=== PATIENT | male | born 1985 | race Caucasian/White ===

== ENCOUNTER 2023-01-20 02:27 | Observation (INO) | payer OTHER, SELFPAY ==
[2023-01-20] VITALS (14 sets, daily range): BP systolic 161–213; BP diastolic 98–119; PULSE 77–105; RESP 16–22; TEMP 35.9–36.8; O2SAT 94–100; BMI 47.2; BMI 48.6
--- NOTE | ~2023-01-20 | US_ITS ---
EXAMINATION: US renal BI DATE: 01/20/2023 14:43 INDICATION: Acute kidney injury TECHNIQUE: Multiple grayscale and Doppler ultrasound images of the kidneys were obtained. COMPARISON: None. FINDINGS: There is limited evaluation of the kidneys due to body habitus. The right kidney measures 1 0.8 x 5.3 x 6.1 cm. The left kidney measures 11.6 x 4.9 x 6.2 cm. The kidneys demonstrate normal pare nchymal echogenicity. There is no hydronephrosis. The bladder is normal in appearance. IMPRESSION: 1. Normal kidneys without hydronephrosis. Reviewed, dictated and finalized at location L.
--- NOTE | ~2023-01-20 | US_ITS ---
EXAMINATION: US retroperitoneal duplex ltd DATE: 01/21/2023 15:55 INDICATION: Hypertension, obesity and smoking. TECHNIQUE: Multiple grayscale, color Doppler, and pulsed Doppler images of the kidneys and renal josé harshil were obtained. COMPARISON: None. FINDINGS: The right kidney and right renal artery is unable to be identified. The left renal artery peak systol ic velocity is 50 cm/s in the proximal segment, 63 cm/s in the mid segment, and 39 cm/s in the distal segment. IMPRESSION: 1. No Doppler evidence of left-sided renal artery stenosis. The right kidney and right renal artery are unable to be identified. Consider CT or MRI for further evaluation, preferably with intravenous c ontrast. Reviewed, dictated and finalized at location A. IMPRESSION: 1. No Doppler evidence of left-sided renal artery stenosis. The right kidney a nd right renal artery are unable to be identified. Consider CT or MRI for furth er evaluation, preferably with intravenous contrast.
--- NOTE | 2023-01-20 01:21 | ADMGEN ---
This patient, Onesimo Benoit, was admitted to IMU Room 210-01. Patient/family oriented to hospital policies and general routines including ID bracelet, bed and alarms, visiting hours, pain management, procedures, bathroom and other care routines, personal items, smoking policy, room service/diet, and visiting hours. Information on how to activate the Rapid Response Team has been discussed. Patient/Family are encouraged to report perceived risks to care and to ask questions if they do not understand what they are told or what they should do.
[2023-01-20 10:39] LABS: Basophils Absolute Auto 0.1 K/mm3 (0.0-0.1); Basophils Percent Auto 0.9 % (0.2-1.2); Eosinophils Absolute Auto 0.2 K/mm3 (0-0.3); Hematocrit 46.8 % (42.0-52.0); Hemoglobin 14.7 g/dL (14.0-18.0); Immature Granulocyte Absolute 0.02 K/mm3 (0.00-0.031); Immature Granulocyte Percent A 0.4 % (0-0.5); Lymphocytes Absolute Auto 1.23 K/mm3 (0.9-3.2); Mean Corpuscular HGB Conc 31.4 g/dl (32-36); Mean Corpuscular Hemoglobin 28.6 pg (26-34); Mean Corpuscular Volume 91.1 fl (80-100); Mean Platelet Volume 10.4 fl (7.4-10.4); Monocytes Percent Auto 18.9 % (2.6-8.5); Neutrophils Absolute Auto 2.9 K/mm3 (1.3-6.7); Neutrophils Percent Auto 53.8 % (45.5-73.1); Platelet Count Result 247 k/mm3 (150-375); Red Blood Count 5.14 M/mm3 (4.6-6.20); Red Cell Distribution Width 13.2 % (11.5-14.5); White Blood Count 5.3 K/mm3 (4.5-10.0)
[2023-01-20 10:52] LABS: Alanine Aminotransferase 26 U/L (6-50); Albumin Level 4.1 g/dL (3.5-5.1); Alkaline Phosphatase 90 U/L (38-126); Anion Gap 6 mmol/L (8-16); Aspartate Amino Transferase 25 U/L (17-59); Bilirubin,Total 0.4 mg/dL (0.2-1.3); Blood Urea Nitrogen 33 mg/dL (9-20); Calcium 8.9 mg/dL (8.4-10.2); Carbon Dioxide 25 mmol/L (22-30); Chloride 105 mmol/L (98-107); Cholesterol 243 mg/dL (0-200); Estimated CRCL calculation 51 ml/min; Estimated Glomerular Filt Rate 26; Glucose 93 mg/dL (65-110); HDL Direct 30 mg/dL; Magnesium 2.1 mg/dL (1.6-2.3); Potassium 4.4 mmol/L (3.4-5.0); Sodium 136 mmol/L (137-145); Triglycerides 420 mg/dL (<150)
[2023-01-20 11:03] LABS: LDL Cholesterol Direct 100 mg/dL
[2023-01-20 12:31] LABS: Influenza A QL RT-PCR Negative (Negative); Influenza B QL RT-PCR Negative (Negative); RSV RNA, RT-PCR Negative (Negative); SARS-CoV-2 RNA PCR Positive (Negative)
[2023-01-20] MEDS: lisinopriL 20 MG TABLET PO (12:43)
[2023-01-20] MEDS: amLODIPine BESYLATE 5 MG TABLET 10 MG PO (12:43)
[2023-01-20] MEDS: hydrALAZINE HCL 25 MG TABLET PO ×2 (15:16→19:54)
--- NOTE | 2023-01-20 15:25 | PM.CNNEP ---
Assessment and Plan Assessment and plan (1) MARIVEL (acute kidney injury): Code(s): N17.9 - Acute kidney failure, unspecified Status: Acute Assessment and Plan: previous creatinine not known last labs I could find was from 2018 -- creatinine at that time was 1.4mg/dl given his age, GFR at that time was >60 however, this could also represent some evidence of renal insufficiency check renal ultrasound and renal duplex (given severe HTN) check urine studies and assess for proteinuria check serologies follow trend of repeat labs and UOP (2) Hypertension: Code(s): I10 - Essential (primary) hypertension Status: Acute Assessment and Plan: quite elevated on presentation to OSH ER no symptoms other than headache possible etiology of #1 (?) check renal duplex to r/o IZZY check Echo aim to keep systolic BP ~ 160 - 170s in the next 24 hours follow trend of hemodynamics (3) COVID: Code(s): U07.1 - COVID-19 Status: Acute Assessment and Plan: incidentally found no real attributable symptoms I will continue to follow the patient with you while he remains hospitalized and make further recommendations as needed. Thank you for allowing me to participate in care this patient. History of Present Illness Reason for Consult Consult date: 01/20/23 Reason for consult: acute renal failure (?) Chief Complaint Chief complaint: HTN Urgency/MARIVEL/Uncontrolled Hypertension History of Present Illness Narrative: The patient is a 37-year-old male with a past medical history as outlined below who was transferred to [facility] for further evaluation of hypertensive urgency in association with acute kidney injury/acute renal failure. The patient initially went to see his primary care physician for ongoing issues/problems with regard to an upper respiratory tract infection. On evaluation on that office visit, it was noted his blood pressure was in the 240 systolic range and he was subsequently sent to [facility] ER for further evaluation. His routine blood test demonstrated a significantly elevated BUN and creatinine in association with his hypertension. He was given oral medications for his blood pressure and subsequently transferred to [facility] for further evaluation and therapy. On admission here to [facility], repeat bloodwork confirmed his elevated BUN and creatinine and his blood pressure was still quite elevated. the outside hospital ER gave him Amlodipine and Lisinopril for treatment of his blood pressure although I am unclear if they gave him any other IV medications as well. Given his renal dysfunction, it was felt that he would better be served by admission here to [facility] for further testing. Incidentally, it was discovered he was also COVID-19 positive. Renal consultation was requested due to his presumed acute kidney injury/acute renal failure. From my discussion with the patient, he has never been told or informed that he has any issues or problems with regard to his kidney function. He does report a longstanding history of hypertension and I am unclear how controlled and has been up until this point in time. Furthermore, the patient reports that he has not had blood test in several years so was unclear how acute or chronic this change in his renal function is. Looking through his electronic records, the last creatinine that I can find is from 2018 which demonstrated a value of 1.4 mg/dL. Given his age, his GFR would still be greater than 60 but this does argue the possibility that there may have been some underlying renal issues even as far back as 2018 if not longer. Currently, at the time my evaluation, he does not appear to be in acute distress. Review of Systems Review of Systems: As per HPI. [facility] Past Medical History Medical History (Updated 01/20/23 @ 19:07 by Joe Martin MD) Hypertension
[2023-01-20 15:46] LABS: Add Urine Microscopic? YES; Appearance Urine Clear (Clear); Bacteria Urine None Seen /hpf; Bilirubin Urine Negative (Negative); Blood Urine 1+ (Negative); Color Urine Yellow (Yellow); Glucose Urine UA Negative (Negative); Ketones Urine Negative (Negative); Leukocyte Esterase Ur Negative LEU/UL (Negative); Nitrate Urine Negative (Negative); Non Pathogenic Casts 0-2; Protein Urine 3+ mg/dL (Negative); RBC Urine 0-2 /hpf (0-2); Specific Grav Ur 1.009 (1.001-1.035); Squamous Epithelial Cell Urine None seen /hpf (Few); Urobilinogen Urine 0.2 mg/dL (<2.0); WBC Urine 0-5 /hpf; pH Urine 6.5 (5.0-9.0)
[2023-01-20 16:05] LABS: Eosinophil Urine None Seen % (None Seen); Urine Eos QC 2nd Tech Confirmed
[2023-01-20 16:11] LABS: Urea Random Urine 303 MG/DL
[2023-01-20 16:13] LABS: Creatinine Urine 39.5 mg/dL
[2023-01-20 16:15] LABS: Sodium Urine Random 91 meq/L
--- NOTE | 2023-01-20 16:19 | PM.IMHP ---
H&P: HPI History of Present Illness Date/Time: 01/20/23 16:19 Chief Complaint: Emergently elevated blood pressure Narrative: Patient is a 37-year-old morbidly obese initially was seen by his primary care provider symptoms of upper respiratory infection at that time his blood pressure was systolic 240 and patient was sent to emergency department at [facility] ER, will patient was given amlodipine 10 mg and lisinopril 20 mg and transfer the patient to the hospital further evaluation, patient does complain of headache but denies any chest pain, palpitation, shortness of breath or blurry vision, patient states he was told that his blood pressure is elevated and borderline but Arabella was not on any blood pressure medication, will continue amlodipine and lisinopril, to monitor his blood pressure, will keep the systolic blood pressure 160 get the patient hydralazine 25 mg q.6h as needed, also patient has elevated creatinine most likely secondary to dehydration as well as concerning uncontrolled hypertension resulting in kidney injury, to further evaluate will do the kidney ultrasound and consult imaging science professor, will do cardiac echo, patient is also positive for COVID-19 he does not have any symptoms of shortness of breath fever or chills 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 Patient is admitted as inpatient with emergently elevated new onset hypertension, acute coronary injury and [facility] Social History Social History Years smoked: 10 Smoking status: Current some day smoker Tobacco type: cigarettes Alcohol intake: never Substance use: never Lack of Transportation: No Lack of Food: Never True Current Housing: I Have Housing Concerned About Future Housing: No Difficulty Paying Gas/Electric Bills: No Difficulty Paying for Meds: No Currently Unemployed: No Education: High School Diploma/GED Difficulty w/ Childcare or Family Care: No Spiritual care concerns: No Meds Home Medications and Allergies Home Medications Medication Instructions Recorded Confirmed Type amlodipine 10 mg tablet 10 mg PO DAILY 01/20/23 01/20/23 History ibuprofen 200 mg tablet 200 mg PO Q6H PRN Pain 01/20/23 01/20/23 History lisinopril 20 mg tablet 20 mg PO DAILY 01/20/23 01/20/23 History Allergies Allergy/AdvReac Type Severity Reaction Status Date / Time erythromycin base Allergy Hives Verified 01/20/23 01:52 Vital Signs Vital Signs - 24 hr 01/20/23 01:15 01/20/23 02:00 01/20/23 04:00 Temperature 97.3 F L 97.6 F Pulse Rate 85 91 79 Respiratory Rate 22 H 22 H Blood Pressure 173/106 H 161/98 H Pulse Oximetry 100 98 Oxygen Delivery 01/20/23 04:00 01/20/23 04:00 01/20/23 06:00 Temperature Pulse Rate 84 77 Respiratory Rate Blood Pressure Pulse Oximetry Oxygen Delivery Room Air 01/20/23 08:00 01/20/23 08:00 01/20/23 08:00 Temperature 96.7 F L Pulse Rate 81 80 80 Respiratory Rate 20 20 Blood Pressure 166/118 H Pulse Oximetry 99 99 Oxygen Delivery Room Air 01/20/23 10:00 01/20/23 12:00 01/20/23 12:00 Temperature 97.6 F Pulse Rate 84 78 Respiratory Rate 16 Blood Pressure 213/119 H Pulse Oximetry 99 Oxygen Delivery Room Air 01/20/23 12:00 01/20/23 14:00 01/20/23 16:00 Temperature Pulse Rate 86 82 Respiratory Rate Blood Pressure Pulse Oximetry Oxygen Delivery Room Air 01/20/23 16:00 01/20/23 16:00 Temperature 97.5 F L Pulse Rate 87 84 Respiratory Rate 16 Blood Pressure 183/117 H Pulse Oximetry 99 Oxygen Delivery Exam Narrative: Morbidly obese Patient is comfortable, NAD HEENT: eyes are clear and none icteric LUNGS: Normal respiratory effort ABD:distended Lower extremities: no edema SKIN: nonjaundiced Neuro: grossly intact. H&P: Results Labs Labs: Short CBC 01/20/23 Range/Units 10:26 WBC 5.3 (4.5-10.0) K/mm3
[2023-01-20 16:30] LABS: Total Protein Urine Random 306 mg/dL; Ur Ttl Prot Creatinine Ratio 7.75 mg/mg (0-0.20)
[2023-01-20] MEDS: METOPROLOL TARTRATE INJ 5 MG/5 ML VIAL IV PUSH (21:56)
[2023-01-21] VITALS (14 sets, daily range): BP systolic 135–177; BP diastolic 89–103; PULSE 69–90; RESP 12–22; TEMP 36.4–36.9; O2SAT 98–100
--- NOTE | 2023-01-21 | ECHO_ITS ---
Patient Info Name: Onesimo Benoit Age: 37 years : 1985 Gender: Male Ht: 71 in Wt: 350 lbs BSA: 2.90 m2 HR: 72 bpm BP: 177 / 101 mmHg Heart Rhythm: Sinus Rhythm Technical Quality: Good Exam Date: 01/21/2023 11:23 AM Exam Location: [facility] Patient Status: Outpatient Admit Date: 01/20/2023 Staff Ordering Physician: Ning Chin MD Procurement Clerk: Ann Marie Self RDCS Attending Provider: Garrett Chew MD Exam Type: CA echo dop color flow w con Study Info Indications - hypertensive crisis Complete two-dimensional, color flow and Doppler transthoracic echocardiogram is performed with contrast to opacify the left ventricle and to improve the deliniation of the left ventricle endocardial borders. Summary 1. Technically somewhat difficult exam because of patient obesity/definity contrast use. 2. Concentric left ventricular hypertrophy with mildly reduced systolic function and grade 1 diastolic noncompliance. 3. Enlarged left atrium. 4. No valvular dysfunction. Left Ventricle Left ventricular chamber dimension is normal. Left ventricular systolic function is mildly reduced, estimated at 45-50%. There is moderate concentric increased left ventricular wall thickness. The left ventricular diastolic function is grade I diastolic dysfunction. Right Ventricle Right ventricular chamber dimension is normal. Left Atria Left atrial chamber dimension is mildly enlarged. Right Atria Right atrial chamber dimension is normal. Aortic Valve The aortic valve is normal. Pulmonic Valve The pulmonic valve is not well visualized. Mitral Valve The mitral valve has normal leaflets. Tricuspid Valve The tricuspid valve leaflets are normal. Pericardium/Pleural The pericardium appears normal. Aorta The aortic root size at the sinus of Valsalva is normal. Left Ventricular Outflow Tract Name Value Normal LVOT 2D LVOT Diameter 2.17 cm LVOT Doppler LVOT Peak Gradient 3 mmHg LVOT Mean Gradient 2 mmHg LVOT VTI 17.26 cm LVOT VTI/AV VTI Ratio 0.98 LVOT Stroke Volume 63.69 ml LVOT CO 5.11 l/min LVOT CI 1.76 L/min/m2 Pulmonic Valve Name Value Normal RVOT Doppler RVOT Peak Gradient 2 mmHg PV Doppler PV Peak Gradient 2 mmHg Mitral Valve Name Value Normal MV Doppler MV Decel [place] 490.14 cm/s2 MV PHT 0 s MV Area (P
[2023-01-21 05:09] LABS: Hematocrit 48.6 % (42.0-52.0); Hemoglobin 15.7 g/dL (14.0-18.0); Mean Corpuscular HGB Conc 32.3 g/dl (32-36); Mean Corpuscular Hemoglobin 28.4 pg (26-34); Mean Platelet Volume 10.6 fl (7.4-10.4); Platelet Count Result 273 k/mm3 (150-375); Red Blood Count 5.52 M/mm3 (4.6-6.20); Red Cell Distribution Width 13.2 % (11.5-14.5); White Blood Count 5.2 K/mm3 (4.5-10.0)
[2023-01-21 05:24] LABS: Anion Gap 8 mmol/L (8-16); Blood Urea Nitrogen 34 mg/dL (9-20); Calcium 9.1 mg/dL (8.4-10.2); Carbon Dioxide 25 mmol/L (22-30); Chloride 103 mmol/L (98-107); Estimated CRCL calculation 51 ml/min; Estimated Glomerular Filt Rate 26; Glucose 104 mg/dL (65-110); Potassium 4.3 mmol/L (3.4-5.0); Sodium 136 mmol/L (137-145)
[2023-01-21 05:26] LABS: Creatine Kinase 157 U/L (55-170)
[2023-01-21 05:29] LABS: Complement C3 168 mg/dL (88-165)
[2023-01-21] MEDS: hydrALAZINE HCL 25 MG TABLET PO (06:10)
[2023-01-21] MEDS: amLODIPine BESYLATE 5 MG TABLET 10 MG PO (08:45)
--- NOTE | 2023-01-21 11:17 | P.PNNP_ITS ---
Progress Note: A&P Assessment and Plan (1) MARIVEL (acute kidney injury): Code(s): N17.9 - Acute kidney failure, unspecified Status: Acute Assessment and Plan: * Elevated creatinine and nephrotic range proteinuria. * last labs I could find was from 2018 -- creatinine at that time was 1.4mg/dl * given his age, GFR at that time was >60 * however, this could also represent some evidence of renal insufficiency * Ultrasound shows normal kidneys. * Urine electrolytes show non pre renal physiology. * Complements okay * UA shows 3+ protein 1+ blood. * checking serologies * The patient could simply have hypertensive nephrosclerosis. Infiltrative or autoimmune diseases are possible as well. * follow trend of repeat labs and UOP * With a nephrotic range proteinuria plus a little bit of blood I think a biopsy would be warranted. Will follow blood pressure over the weekend and biopsy on Tuesday if he is still here. If not we will do this as an outpatient. (2) Hypertension: Code(s): I10 - Essential (primary) hypertension Status: Acute Assessment and Plan: * Blood pressure very high on admission. * no symptoms other than headache * Blood pressure is improved on amlodipine hydralazine lisinopril and metoprolol. * renal duplex to r/o IZZY and Echo are pending * aim to keep systolic BP ~ 160 - 170s in the next 24 hours * follow trend of hemodynamics (3) COVID: Code(s): U07.1 - COVID-19 Status: Acute Assessment and Plan: * incidentally found * He did have low-grade fevers and some fogginess he says. Subjective Date/time seen: 01/21/23 11:17 Interval history: Onesimo is feeling a little better. Resting comfortably in bed. He is on no oxygen. Review of Systems Cardiovascular: Cardiovascular: Reports no additional cardiovascular complaints Respiratory: Respiratory: Reports no additional respiratory complaints Gastrointestinal: Gastrointestinal: Reports no additional gastrointestinal complaints Genitourinary: Genitourinary: Reports no additional male genitourinary complaints Exam Narrative: WDWN in NAD skin no rash head ncat lungs clear cor reg no rub abd BS+ nontender and soft ext no edema. Objective Data Vital Signs Vital Signs: Vital Signs - 24 hr 01/20/23 12:00 01/20/23 12:00 01/20/23 12:00 Temperature 97.6 F Pulse Rate 78 86 Respiratory Rate 16 Blood Pressure 213/119 H Pulse Oximetry 99 Oxygen Delivery Room Air 01/20/23 14:00 01/20/23 16:00 01/20/23 16:00 Temperature Pulse Rate 82 87 Respiratory Rate Blood Pressure Pulse Oximetry Oxygen Delivery Room Air 01/20/23 16:00 01/20/23 18:00 01/20/23 20:00 Temperature 97.5 F L 98.2 F Pulse Rate 84 91 88 Respiratory Rate 16 22 H Blood Pressure 183/117 H 172/103 H Pulse Oximetry 99 94 Oxygen Delivery 01/20/23 20:00 01/20/23 21:19 01/20/23 20:00 Temperature 97.6 F Pulse Rate 84 91 Respiratory Rate 22 H Blood Pressure 175/101 H Pulse Oximetry 100 Oxygen Delivery Room Air 01/20/23 21:56 01/21/23
--- NOTE | 2023-01-21 11:17 | PM.PNNEP ---
Progress Note: A&P Assessment and Plan (1) MARIVEL (acute kidney injury): Code(s): N17.9 - Acute kidney failure, unspecified Status: Acute Assessment and Plan: Elevated creatinine and nephrotic range proteinuria. last labs I could find was from 2018 -- creatinine at that time was 1.4mg/dl given his age, GFR at that time was >60 however, this could also represent some evidence of renal insufficiency Ultrasound shows normal kidneys. Urine electrolytes show non pre renal physiology. Complements okay UA shows 3+ protein 1+ blood. checking serologies The patient could simply have hypertensive nephrosclerosis. Infiltrative or autoimmune diseases are possible as well. follow trend of repeat labs and UOP With a nephrotic range proteinuria plus a little bit of blood I think a biopsy would be warranted. Will follow blood pressure over the weekend and biopsy on Tuesday if he is still here. If not we will do this as an outpatient. (2) Hypertension: Code(s): I10 - Essential (primary) hypertension Status: Acute Assessment and Plan: Blood pressure very high on admission. no symptoms other than headache Blood pressure is improved on amlodipine hydralazine lisinopril and metoprolol. renal duplex to r/o IZZY and Echo are pending aim to keep systolic BP ~ 160 - 170s in the next 24 hours follow trend of hemodynamics (3) COVID: Code(s): U07.1 - COVID-19 Status: Acute Assessment and Plan: incidentally found He did have low-grade fevers and some fogginess he says. Subjective Date/time seen: 01/21/23 11:17 Interval history: Onesimo is feeling a little better. Resting comfortably in bed. He is on no oxygen. Review of Systems Cardiovascular: Cardiovascular: Reports no additional cardiovascular complaints Respiratory: Respiratory: Reports no additional respiratory complaints Gastrointestinal: Gastrointestinal: Reports no additional gastrointestinal complaints Genitourinary: Genitourinary: Reports no additional male genitourinary complaints Exam Narrative: WDWN in NAD skin no rash head ncat lungs clear cor reg no rub abd BS+ nontender and soft ext no edema. Objective Data Vital Signs Vital Signs: Vital Signs - 24 hr 01/20/23 12:00 01/20/23 12:00 01/20/23 12:00 Temperature 97.6 F Pulse Rate 78 86 Respiratory Rate 16 Blood Pressure 213/119 H Pulse Oximetry 99 Oxygen Delivery Room Air 01/20/23 14:00 01/20/23 16:00 01/20/23 16:00 Temperature Pulse Rate 82 87 Respiratory Rate Blood Pressure Pulse Oximetry Oxygen Delivery Room Air 01/20/23 16:00 01/20/23 18:00 01/20/23 20:00 Temperature 97.5 F L 98.2 F Pulse Rate 84 91 88 Respiratory Rate 16 22 H Blood Pressure 183/117 H 172/103 H Pulse Oximetry 99 94 Oxygen Delivery 01/20/23 20:00 01/20/23 21:19 01/20/23 20:00 Temperature 97.6 F Pulse Rate 84 91 Respiratory Rate 22 H Blood Pressure 175/101 H Pulse Oximetry 100 Oxygen Delivery Room Air 01/20/23 21:56 01/21/23 00:00 01/20/23 22:00 Temperature 97.6 F Pulse Rate 105 H 74 79 Respiratory Rate 22 H Blood Pressure 159/96 H Pulse Oximetry 98 Oxygen Delivery 01/21/23 00:00 01/21/23 00:00 01/21/23 02:00 Temperature Pulse Rate 74 78 Respiratory Rate Blood Pressure Pulse Oximetry Oxygen Delivery Room Air 01/21/23 04:00 01/21/23 04:00 01/21/23 04:00 Temperature 97.8 F Pulse Rate 75 79 Respiratory Rate 22 H Blood Pressure 177/101 H Pulse Oximetry 99 Oxygen Delivery Room Air 01/21/23 06:00 01/21/23 08:00 01/21/23 08:00 Temperature 98.5 F Pulse Rate 72 90 90 Respiratory Rate 16 16 Blood Pressure 145/91 H Pulse Oximetry 100 100 Oxygen Delivery Room Air 01/21/23 08:00 01/21/23 10:00 Temperature Pulse Rate 80 80 Respiratory Rate Blood Pressure Pulse Oximetry Oxygen Delivery Intake/Outpu
[2023-01-21] MEDS: PERFLUTREN LIPID MICROSPHERES 1.5 ML VIAL DILUTED TO 10 ML TOTAL VOLUME IV PUSH (11:20)
--- NOTE | 2023-01-21 15:33 | WPDPN ---
Progress Note: A&P Assessment and Plan (1) Hypertension: Code(s): I10 - Essential (primary) hypertension Status: Acute Assessment and Plan: Patient is a 37-year-old morbidly obese initially was seen by his primary care provider symptoms of upper respiratory infection at that time his blood pressure was systolic 240 and patient was sent to emergency department at [facility] ER, will patient was given amlodipine 10 mg and lisinopril 20 mg and transfer the patient to the hospital further evaluation, patient does complain of headache but denies any chest pain, palpitation, shortness of breath or blurry vision, patient states he was told that his blood pressure is elevated and borderline but Arabella was not on any blood pressure medication, will continue amlodipine and lisinopril, to monitor his blood pressure, will keep the systolic blood pressure 160 get the patient hydralazine 25 mg q.6h as needed, also patient has elevated creatinine most likely secondary to dehydration as well as concerning uncontrolled hypertension resulting in kidney injury, to further evaluate will do the kidney ultrasound and consult glass lined tank repairer, will do cardiac echo, patient is also positive for COVID-19 he does not have any symptoms of shortness of breath fever or chills 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 Whittington suspect 2/2 hypertensive nephrosclerosis and further work up is in progress and patient will need kidney biopsy which is scheduled for Tuesday. cardiac echo is pending, (2) MARIVEL (acute kidney injury): Code(s): N17.9 - Acute kidney failure, unspecified Status: Acute Assessment and Plan: Will hold lisinopril, will do kidney ultrasound, will consult glass lined tank repairer for further evaluation (3) COVID: Code(s): U07.1 - COVID-19 Status: Acute Assessment and Plan: Patient remains clinically stable he does not complain of shortness of breath, fever or chills Subjective Date/time seen: 01/21/23 15:33 Interval history: Patient is a 37-year-old morbidly obese initially was seen by his primary care provider symptoms of upper respiratory infection at that time his blood pressure was systolic 240 and patient was sent to emergency department at [facility] ER, will patient was given amlodipine 10 mg and lisinopril 20 mg and transfer the patient to the hospital further evaluation, patient does complain of headache but denies any chest pain, palpitation, shortness of breath or blurry vision, patient states he was told that his blood pressure is elevated and borderline but Arabella was not on any blood pressure medication, will continue amlodipine and lisinopril, to monitor his blood pressure, will keep the systolic blood pressure 160 get the patient hydralazine 25 mg q.6h as needed, also patient has elevated creatinine most likely secondary to dehydration as well as concerning uncontrolled hypertension resulting in kidney injury, to further evaluate will do the kidney ultrasound and consult glass lined tank repairer, will do cardiac echo, patient is also positive for COVID-19 he does not have any symptoms of shortness of breath fever or chills 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 Whittington suspect 2/2 hypertensive nephrosclerosis and further work up is in progress and patient will
[2023-01-22] VITALS (7 sets, daily range): BP systolic 128–151; BP diastolic 81–100; PULSE 76–101; RESP 14–18; TEMP 36.6; O2SAT 99–100
[2023-01-22 04:54] LABS: Albumin Level 3.9 g/dL (3.5-5.1); Anion Gap 9 mmol/L (8-16); Blood Urea Nitrogen 37 mg/dL (9-20); Carbon Dioxide 23 mmol/L (22-30); Chloride 103 mmol/L (98-107); Estimated CRCL calculation 50 ml/min; Estimated Glomerular Filt Rate 26; Glucose 99 mg/dL (65-110); Phosphorus 5.1 mg/dL (2.5-4.5); Potassium 4.2 mmol/L (3.4-5.0); Sodium 135 mmol/L (137-145)
[2023-01-22 05:27] LABS: Hematocrit 48.8 % (42.0-52.0); Hemoglobin 16.3 g/dL (14.0-18.0); Mean Corpuscular HGB Conc 33.4 g/dl (32-36); Mean Corpuscular Volume 86.8 fl (80-100); Mean Platelet Volume 10.4 fl (7.4-10.4); Platelet Count Result 277 k/mm3 (150-375); Red Blood Count 5.62 M/mm3 (4.6-6.20); Red Cell Distribution Width 13.2 % (11.5-14.5)
[2023-01-22] MEDS: amLODIPine BESYLATE 5 MG TABLET 10 MG PO (09:15)
--- NOTE | 2023-01-22 10:20 | PM.IMPN ---
Progress Note: A&P Assessment and Plan (1) Hypertension: Code(s): I10 - Essential (primary) hypertension Status: Acute Assessment and Plan: Patient is a 37-year-old morbidly obese initially was seen by his primary care provider symptoms of upper respiratory infection at that time his blood pressure was systolic 240 and patient was sent to emergency department at [facility] ER, will patient was given amlodipine 10 mg and lisinopril 20 mg and transfer the patient to the hospital further evaluation, patient does complain of headache but denies any chest pain, palpitation, shortness of breath or blurry vision, patient states he was told that his blood pressure is elevated and borderline but Arabella was not on any blood pressure medication, will continue amlodipine and lisinopril, to monitor his blood pressure, will keep the systolic blood pressure 160 get the patient hydralazine 25 mg q.6h as needed, also patient has elevated creatinine most likely secondary to dehydration as well as concerning uncontrolled hypertension resulting in kidney injury, to further evaluate will do the kidney ultrasound and consult lining machine tender, will do cardiac echo, patient is also positive for COVID-19 he does not have any symptoms of shortness of breath fever or chills 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 Whittington suspect 2/2 hypertensive nephrosclerosis and further work up is in progress and patient will need kidney biopsy which is scheduled for Tuesday. cardiac echo is pending, 01/22/2023: 37-year-old presents to the ER for hypertensive urgency with blood pressures systolic 240. Given amlodipine lisinopril. Had headache on hydralazine p.r.n. MARIVEL versus chronic renal insufficiency with creatinine on admission 2.8. Urinalysis bland urine creatinine ratio of 7.75. Complement level at high also positive for COVID-19 no shortness of breath fever chills. Nephrology consulted blood pressures improved ultrasound kidney with normal kidneys without hydronephrosis. No Doppler evidence of left sided renal artery stenosis. Right kidney and right renal artery are unable to be identified. Echo with concentric left ventricle hypertrophy with mildly reduced systolic function EF 45-50%. Grade 1 diastolic noncompliance. No valvular abnormality. Per nephrology note creatinine 2018 was 1.4 autoimmune workup in process due to nephrotic range proteinuria. Biopsy planned in Tuesday. On amlodipine and hydralazine p.r.n.. Will schedule hydralazine 25 mg b.i.d. for optimization of blood pressure. Patient leaning towards getting the biopsy done as an outpatient basis. If okay with Nephrology DC later today with outpatient follow-up on amlodipine and hydralazine. (2) MARIVEL (acute kidney injury): Code(s): N17.9 - Acute kidney failure, unspecified Status: Acute Assessment and Plan: Will hold lisinopril, will do kidney ultrasound, will consult lining machine tender for further evaluation (3) COVID: Code(s): U07.1 - COVID-19 Status: Acute Assessment and Plan: Patient remains clinically stable he does not complain of shortness of breath, fever or chills Subjective Date/time seen: 01/22/23 10:20 Interval history: Patient is a 37-year-old morbidly obese initially was seen by his primary care provider symptoms of upper respiratory infection at that time his blood pressure was systolic 240 and patient was sent to emergency department at [facility] ER, will patient was given amlodipine 10 mg and lisinopril 20 mg and transfer the patient to the hospital further evaluation, patient does complain of headache but denies a
--- NOTE | 2023-01-22 12:06 | PM.DS ---
DS: Admitting Diagnosis Discharge Date 01/22/2023 Admitting Diagnosis Hypertension urgency DS: Discharge Diagnosis Discharge Diagnosis (1) Hypertension: Code(s): I10 - Essential (primary) hypertension Status: Acute (2) MARIVEL (acute kidney injury): Code(s): N17.9 - Acute kidney failure, unspecified Status: Acute (3) COVID: Code(s): U07.1 - COVID-19 Status: Acute DS: Summary Hospital Course Hospital Course: 37-year-old presents to the ER for hypertensive urgency with blood pressures systolic 240.? Given amlodipine lisinopril.? Had headache. Started on hydralazine p.r.n. he elevated creatinine admission. MARIVEL versus chronic renal insufficiency with creatinine on admission 2.8.? Urinalysis bland urine creatinine ratio of 7.75.? Complement level at high also positive for COVID-19 no shortness of breath fever chills.? Nephrology consulted blood pressures improved ultrasound kidney with normal kidneys without hydronephrosis.? No Doppler evidence of left sided renal artery stenosis.? Right kidney and right renal artery are unable to be identified.? Echo with concentric left ventricle hypertrophy with mildly reduced systolic function EF 45-50%.? Grade 1 diastolic noncompliance.? No valvular abnormality.? Per nephrology note creatinine 2018 was 1.4 autoimmune workup in process due to nephrotic range proteinuria.? Biopsy planned in Tuesday.? On amlodipine and hydralazine p.r.n..? Will schedule hydralazine 25 mg b.i.d. for optimization of blood pressure.? Patient opting for getting biopsy done as outpatient basis. Okay per to discharge plan an outpatient basis. Time Spent with Patient Time attestation: Total time spent providing and/or coordinating discharge services: Exam Narrative: Morbidly obese Patient is comfortable, NAD HEENT: eyes are clear and none icteric LUNGS: Normal respiratory effort ABD:distended Lower extremities: no edema SKIN: nonjaundiced Neuro: grossly intact. DS: Data Data Completed and Pending Completed studies during hospitalization: Exam Type: ? ? CA echo dop color flow w con Study Info Indications ?? ? - hypertensive crisis Complete two-dimensional, color flow and Doppler transthoracic echocardiogram is performed with contrast to opacify the left ventricle and to improve the deliniation of the left ventricle endocardial borders. Account #: ? ? [id number] Summary ? 1. Technically somewhat difficult exam because of patient obesity/definity contrast use. ? 2. Concentric left ventricular hypertrophy with mildly reduced systolic function and grade 1 diastolic noncompliance. ? 3. Enlarged left atrium. ? 4. No valvular dysfunction. Left Ventricle ? Left ventricular chamber dimension is normal. ? Left ventricular systolic function is mildly reduced, estimated at 45-50%. ? There is moderate concentric increased left ventricular wall thickness. ? The left ventricular diastolic function is grade I diastolic dysfunction. Right Ventricle ? Right ventricular chamber dimension is normal. Left Atria ? Left atrial chamber dimension is mildly enlarged. Right Atria ? Right atrial chamber dimension is normal. Aortic Valve ? The aortic valve is normal. Pulmonic Valve ? The pulmonic valve is not well visualized. Mitral Valve ? The mitral valve has normal leaflets. Tricuspid Valve ? The tricuspid valve leaflets are normal. Pericardium/Pleural ? The pericardium appears normal. Aorta ? The aortic root size at the sinus of Valsalva is normal. Labs on day of discharge: Labs from last 24 hours 01/22/23 04:15 WBC 5.0 RBC 5.62 Hgb 16.3 Hct 48.8 MCV 86.8 MCH 29.0 MCHC 33.4 RDW 13.2 Plt Count 277 MPV 10.4 Sodium 135 L Potassium 4.2 Chloride 103 Carbon Dioxide 23 Anion Gap 9 BUN 37 H Creatinine 2.80 H Estim Creat Clear Calc 50 Estimated GFR 26 L Glucose 99 Calcium 9.0 Phosphorus 5.1 H Albumin 3.9 Im
--- NOTE | 2023-01-22 12:49 | PM.PNNEP ---
Progress Note: A&P Assessment and Plan (1) MARIVEL (acute kidney injury): Code(s): N17.9 - Acute kidney failure, unspecified Status: Acute Assessment and Plan: Elevated creatinine and nephrotic range proteinuria. last labs I could find was from 2018 -- creatinine at that time was 1.4mg/dl given his age, GFR at that time was >60 however, this could also represent some evidence of renal insufficiency Ultrasound shows normal kidneys. Urine electrolytes show non pre renal physiology. Complements okay UA shows 3+ protein 1+ blood. checking serologies. Most are pending. The patient could simply have hypertensive nephrosclerosis. Infiltrative or autoimmune diseases are possible as well. The patient's creatinine is stable. I think he can get his biopsy as an outpatient. I instructed him to give me a call at the office so we can get his biopsy arranged and see him. We discussed renal biopsy at length. It is under ultrasound guidance. The kidneys are very vascular were given and so bleeding as possible. Some bleeding will likely occur because we can not hold pressure on the hole in the kidney. Most bleeding spontaneously stops rapidly. However there is a 100 chance that he might need a blood transfusion and 1 in the 500 to a 1000 chance that so may have to go when is stop the bleeding if he has continued bleeding. He is not on blood thinners. He knows that he will have to have a ride back and forth to the biopsy. He agrees to the biopsy and will call on Tuesday to get this set up. (2) Hypertension: Code(s): I10 - Essential (primary) hypertension Status: Acute Assessment and Plan: Blood pressure very high on admission. no symptoms other than headache Blood pressure is improved on amlodipine hydralazine lisinopril and metoprolol. renal duplex to r/o IZZY and Echo are pending Systolic ranging 120-150. (3) COVID: Code(s): U07.1 - COVID-19 Status: Acute Assessment and Plan: incidentally found He did have low-grade fevers and some fogginess he says. He feels better Subjective Date/time seen: 01/22/23 12:49 Interval history: Onesimo is feeling a little better. Eager for discharge. Eating well. No shortness of breath. He is on no oxygen. Exam Narrative: WDWN in NAD skin no rash or subQ nodules head ncat lungs clear bilaterally cor reg no rub abd BS+ nontender and soft ext no edema or cyanosis. Objective Data Vital Signs Vital Signs: Vital Signs - 24 hr 01/21/23 14:00 01/21/23 16:00 01/21/23 16:00 Temperature 97.8 F Pulse Rate 83 87 Respiratory Rate 18 Blood Pressure 156/103 H Pulse Oximetry 99 Oxygen Delivery Room Air 01/21/23 16:00 01/21/23 18:00 01/21/23 19:59 Temperature 97.7 F Pulse Rate 69 89 87 Respiratory Rate 22 H Blood Pressure 155/89 H Pulse Oximetry 99 Oxygen Delivery 01/21/23 20:00 01/21/23 23:39 01/21/23 20:00 Temperature 97.9 F Pulse Rate 83 85 Respiratory Rate 12 Blood Pressure 135/89 Pulse Oximetry 98 Oxygen Delivery Room Air 01/21/23 22:00 01/22/23 00:00 01/22/23 00:00 Temperature Pulse Rate 74 76 Respiratory Rate Blood Pressure Pulse Oximetry Oxygen Delivery Room Air 01/22/23 02:00 01/22/23 04:00 01/22/23 04:00 Temperature 97.8 F Pulse Rate 89 96 Respiratory Rate 14 Blood Pressure 128/81 Pulse Oximetry 100 Oxygen Delivery Room Air 01/22/23 04:00 01/22/23 06:00 01/22/23 08:00 Temperature Pulse Rate 101 H 82 82 Respiratory Rate 14 Blood Pressure Pulse Oximetry 100 Oxygen Delivery Room Air 01/22/23 08:00 01/22/23 08:00 01/22/23 10:00 Temperature 97.9 F Pulse Rate 84 96 86 Respiratory Rate 18 Blood Pressure 151/100 H Pulse Oximetry 99 Oxygen Delivery 01/22/23 12:00 01/22/23 12:00 Temperature Pulse Rate 85 Respiratory Rate Blood Pressure Pulse Oximetry Oxygen Del
[2023-01-25 07:43] LABS: Anti Glomerular Basement Memb <1.0 AI (<1.0)
[2023-01-25 13:57] LABS: Albumin 3.6 g/dL (3.8-4.8); Alpha 1 Globulin 0.3 g/dL (0.2-0.3); Alpha 2 Globulin 0.8 g/dL (0.5-0.9); Beta 1 Globulin 0.5 g/dL (0.4-0.6); Gamma Globulin 0.9 g/dL (0.8-1.7); Protein, Total 6.4 g/dL (6.1-8.1)
[2023-01-25 18:24] LABS: Complement Total CH50 66 U/mL (31-60)
[2023-01-25 21:57] LABS: ANCA Screen Negative (Negative)
[2023-01-26 09:37] LABS: Kappa\\Lambda Light Chains 1.31 (0.26-1.65); Lambda Light Chain 44.5 mg/L (5.7-26.3)
[2023-01-26 13:55] LABS: Chloride Rand Ur 94 mmol/L (32-290); Chloride/Creatinine Rand Ur 229 (23-275); Creatinine Random Urine 41 mg/dL (20-320)
[2023-01-26 19:47] LABS: Creatinine, Random Urine 42 mg/dL (20-320); Total Protein/Creatinine Ratio 4690 mg/g creat (25-148)
== END 2023-01-22 15:59 | disposition home or self-care (01) ==
PROVIDERS: Internal Medicine Nephrology; Admitting Provider Family Medicine; PCP Family Medicine Sports Medicine; Visit Provider Internal Medicine
DX: I16.1 Hypertensive emergency (principal); N17.9 Acute kidney failure, unspecified; U07.1 COVID-19; R51.9 Headache, unspecified; R79.89 Other specified abnormal findings of blood chemistry; E66.01 Morbid (severe) obesity due to excess calories; Z68.42 Body mass index [BMI] 45.0-49.9, adult; F17.210 Nicotine dependence, cigarettes, uncomplicated; Z79.1 Long term (current) use of non-steroidal anti-inflammatories (NSAID); Z79.899 Other long term (current) drug therapy
CPT/HCPCS: 36415; 76775; 80048; 80053; 80061; 80069; 81001; 81050; 82436; 82550; 82570; 83520; 83735; 83883; 84155; 84156; 84165; 84166; 84300; 84443; 84540; 85025; 85027; 85999; 86036; 86038; 86160; 86162; 86225; 87637; 93976; 96374; A9270; C8929; G0378; G0379; Q9957

== ENCOUNTER 2024-01-20 05:16 | Outpatient (CLI) | payer OTHER, SELFPAY ==
[2024-01-11 08:24] VITALS: BMI 47.5
--- NOTE | 2024-01-11 08:24 | PC.NURSE ---
Pre Radiology instructions Report to the outpatient [facility] on date _[id number]_ at time _0900_ for procedure Time: _1100_ YOU MAY BE MONITORED AT HOSPITAL FOR UP TO 4 HOURS AFTER YOUR PROCEDURE. A visitor will be allowed to accompany the patient into the hospital. You and your visitor will be asked to self-screen and do not enter if you have any COVID symptoms. A mask is OPTIONAL within the hospital. Patients are to have no food or drink 6 hours prior to procedure time Driving will be restricted after the procedure, you must have a person to drive you home. Labs will be drawn in preop area and once reviewed, you will be taken to radiology area for procedure. When the procedure is completed, you will be taken to outpatient where you will be monitored for several hours. You may have one visitor in this area. Other than holding anti-coagulants, patient may take other medication(s) as scheduled. Prior to your appointment date patients are instructed to hold anti-coagulants after discussing with ordering provider to stop. If unable to discontinue anti-coagulants please notify radiologist. ? No aspirin or warfarin (Coumadin) for 7 days prior to the procedure. ? No clopidogrel (Plavix), ticagrelor (Brilinta), prasugrel (Effient) or dabigatran (Pradaxa) for 5 days prior to the procedure. ? No rivaroxaban (Xarelto), apixaban (Eliquis), dipyridamole (Aggrenox or Persantine) or cilostazol (Pletal) for 2 days prior to the procedure. Medications to discontinue per physician: Date to take last dose: Please leave all valuables, including medications, at home the day of procedure. The hospital will not accept responsibility for valuables. Wear comfortable, loose fitting clothing.? Follow any additional instructions given to you from ordering provider. Telephone instructions given to __Andy___and asked if any additional questions and then verbalized understanding. Patient advised to call scheduling provider office or registration scheduling [phone] if any additional questions.
[2024-01-20] VITALS (10 sets, daily range): BP systolic 121–153; BP diastolic 61–96; PULSE 57–71; RESP 16–20; TEMP 36.3; O2SAT 99
--- NOTE | ~2024-01-20 | US_ITS ---
EXAMINATION: US biopsy renal DATE: 01/20/2024 10:16 INDICATION: Hypertensive chronic kidney disease TECHNIQUE: The procedure including the risks, benefits, and alternatives was discussed with the patie nt. Risks discussed included bleeding and infection. The patient understood the risks and agreed to p roceed. A timeout was performed to verify the patient's name, date of , and procedure to be p erformed. The skin overlying the left kidney was prepped and draped in usual sterile fashion. Anest hetic was administered with 1% lidocaine subcutaneously. An 18 gauge core biopsy needle was then use d to obtain 5 core biopsy specimens under continuous sonographic guidance. The entry site was cleaned and dressed. There were no immediate complications. FINDINGS: Ultrasound images demonstrate the needle in the kidney. IMPRESSION: 1. Ultrasound-guided random left kidney core needle biopsy. Reviewed, dictated and finalized at location A.
[2024-01-20] MEDS: SODIUM CHLORIDE 0.9% IV 1,000 ML 30 ML IV CONT (07:58)
[2024-01-20 08:02] LABS: Basophils Absolute Auto 0.1 K/mm3 (0.0-0.1); Basophils Percent Auto 0.9 % (0.2-1.2); Eosinophils Absolute Auto 0.4 K/mm3 (0-0.3); Hematocrit 40.1 % (42.0-52.0); Hemoglobin 13.2 g/dL (14.0-18.0); Immature Granulocyte Absolute 0.01 K/mm3 (0.00-0.031); Immature Granulocyte Percent A 0.1 % (0-0.5); Lymphocytes Absolute Auto 1.08 K/mm3 (0.9-3.2); Lymphocytes Percent Auto 16.1 % (18.3-44.2); Mean Corpuscular HGB Conc 32.9 g/dl (32-36); Mean Corpuscular Hemoglobin 29.5 pg (26-34); Mean Corpuscular Volume 89.5 fl (80-100); Mean Platelet Volume 10.2 fl (7.4-10.4); Monocytes Absolute Auto 0.5 K/mm3 (0.1-0.6); Monocytes Percent Auto 7.3 % (2.6-8.5); Neutrophils Absolute Auto 4.7 K/mm3 (1.3-6.7); Neutrophils Percent Auto 69.6 % (45.5-73.1); Platelet Count Result 253 k/mm3 (150-375); Red Blood Count 4.48 M/mm3 (4.6-6.20); Red Cell Distribution Width 12.9 % (11.5-14.5); White Blood Count 6.7 K/mm3 (4.5-10.0)
[2024-01-20 08:12] LABS: Prothrombin Time 13.6 Seconds (11.1-14.7)
== END 2024-01-20 13:58 | disposition home or self-care (01) ==
PROVIDERS: PCP Family Medicine Sports Medicine; Referring Provider Internal Medicine Nephrology; Visit Provider Radiology Diagnostic Radiology
PROC: (CPT 76942; principal; 2024-01-20 09:30)
DX: I12.9 Hypertensive chronic kidney disease with stage 1 through stage 4 chronic kidney disease, or unspecified chronic kidney disease (principal); N18.4 Chronic kidney disease, stage 4 (severe); E55.9 Vitamin D deficiency, unspecified; N25.81 Secondary hyperparathyroidism of renal origin
CPT/HCPCS: 36415; 50200; 76942; 85025; 85610; 88300; 88305; 88313; 88329; 88346; 88348; 88350; J7030